=== PATIENT | female | born 1950 | race African-American/Black ===

== ENCOUNTER 2016-04-14 19:08 | Emergency (ER) | payer MEDICARE ==
[~2016-04-14] VITALS: Ht 160 cm; Wt 54.4 kg
[2016-04-14] MEDS ORDERED: Thiamine 100mg tab ORAL ONE (19:30)
[2016-04-14 20:26] LABS: APPEARANCE,URINE CLEAR
[2016-04-14 20:27] LABS: KETONES,URINE NEGATIVE (NEGATIVE); LEUKOCYTE ESTERASE ,URINE NEGATIVE (NEGATIVE); NITRITE,URINE NEGATIVE (NEGATIVE); PROTEIN,URINE NEGATIVE (NEGATIVE); UROBILINOGEN,URINE NORMAL MG/DL (0.0-1.0)
[2016-04-14 20:31] LABS: BACTERIA,URINE FEW /HPF; MUCUS,URINE MODERATE /LPF (NONE/OCC); RBC,URINE 0-2 /HPF (0 - 2); SQUAMOUS EPITHELIAL CELL,UR FEW /LPF (NONE/OCC)
[2016-04-14 20:46] LABS: BASOPHILS % (AUTO) 0.7 % (0.0-2.0); EOSINOPHILS % (AUTO) 0.1 % (0.0-3.0); LYMPHOCYTES % (AUTO) 13.9 % (20.0-45.0); MEAN CORPUSCULAR HEMOGLOBIN 30.5 PG (27.0-31.0); MEAN CORPUSCULAR VOLUME 92 FL (80-99); MEAN PLATELET VOLUME 6.7 FL (6.5-10.1); MONOCYTES % (AUTO) 6.6 % (1.0-10.0); NEUTROPHILS % (AUTO) 78.7 % (45.0-75.0); PLATELET COUNT 244 K/UL (150-450); RED BLOOD COUNT 4.69 M/UL (4.20-5.40); RED CELL DISTRIBUTION WIDTH 12.9 % (11.6-14.8); WHITE BLOOD COUNT 8.9 K/UL (4.8-10.8)
[2016-04-14 21:10] LABS: TROPONIN I < 0.30 ng/mL (<=0.30)
[2016-04-14 21:12] LABS: ALANINE AMINOTRANSFERASE 13 U/L (3-33); ALBUMIN/GLOBULIN RATIO 1.2 (1.0-2.7); ALCOHOL < 10 mg/dL; ANION GAP 18 (5-15); ASPARTATE AMINO TRANSFERASE 41 U/L (5-40); CALCIUM 11.2 mg/dL (8.6-10.2); CARBON DIOXIDE 24 mEQ/L (20-30); CHLORIDE 97 mEQ/L (98-107); CREATININE 0.6 mg/dL (0.5-0.9); GLOMERULAR FILTRATION RATE > 60 mL/min (>60); HEMOLYSIS 139; POTASSIUM 4.5 mEQ/L (3.4-4.9); SODIUM 139 mEQ/L (135-145)
[2016-04-14] MEDS ORDERED: D5 1/2NS w/KCl 20mEq 1,000 ML IV SCH (21:30)
--- NOTE | 2016-04-14 22:10 | Emergency Room Report ---
History of Present Illness General Chief Complaint: General Complaint Source: Patient, Medical Record Present Illness HPI Patient is a 66-year-old female presented after increased confusion. Patient was brought in by ambulance and was noted to have a complaint of "touch and go" the patient was oriented to name. Patient was noted to be somewhat confused in by paramedics. 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 Allergies: Coded Allergies: SULFAMETHOXAZOLE (Verified Allergy, Unknown, 04/14/16) TRIMETHOPRIM (Verified Allergy, Unknown, 04/14/16) Uncoded Allergies: SHELLFISH (Allergy, Unknown, 04/14/16) Patient History Past Medical History: see triage record Past Surgical History: unable to obtain Pertinent Family History: unable to obtain Now: No Reviewed Nursing Documentation: PMH: Agreed, PSxH: Agreed Nursing Documentation-PMH Past Medical History: No History, Except For Hx Hypertension: Yes Hx Neurological Problems: Yes - AD Review of Systems All Other Systems: limited - by poor historian Physical Exam Vital Signs Date Time Temp Pulse Resp B/P Pulse Ox O2 Delivery O2 Flow Rate FiO2 04/14/16 18:59 98.2 76 16 120/70 99 Room Air Sp02 EP Interpretation: normal General Appearance: alert, non-toxic, thin, Chronically Ill Eyes: bilateral eye PERRL ENT: hearing grossly normal, normal pharynx, no angioedema Neck: full range of motion, supple Respiratory: chest non-tender, lungs clear, normal breath sounds, no rhonchi Cardiovascular #1: normal peripheral pulses, regular rate, rhythm, no edema Gastrointestinal: normal bowel sounds, non tender, soft Musculoskeletal: normal inspection, back normal Neurologic: normal inspection, alert, responsive, personnel security specialist III-XII nml as tested Psychiatric: other Skin: normal inspection, normal color, no rash Medical Decision Making Diagnostic Impression: Primary Impression: Dementia Additional Impressions: Dehydration, mild Hypercalcemia ER Course Patient presented for altered mental status.Differential diagnosis included but was not limited to ischemic stroke, subarachnoid hemorrhage, hypoglycemia, spinal cord injury, neurodegenerative disorder, urinary tract infection, hypoxemia.Because of complexity of patient's case laboratory testing and imaging studies were ordered. The EKG interpreted by me showed normal sinus rhythm with a rate of [address] or T changes.The patient was noted be somewhat confused was given oral thiamine. CT the head was ordered read by radiology and showed generalized atrophy and chronic changes without acute CVA patient was noted to have an old lacunar infarct. The patient started on IV fluids.The patient was noted to be wearing medical bracelet. The patient's brother was subsequently contacted and stated that the patient has history of dementia and that she had been missing for most of the day. He was offered placement Mon the patient appears mildly dehydrated and he declined. The patient was endorsed to pending the IV hydration and likely discharge. Labs Test 04/14/16 20:00 04/14/16 20:15 Urine Color Yellow Urine Appearance Clear Urine pH 6.0 (4.5-8.0) Urine Specific Kimberly 1.020 (1.005-1.035) Urine Protein Negative (NEGATIVE) Urine Glucose (UA) Negative (NEGATIVE) Urine Ketones Negative (NEGATIVE) Urine Occult Blood Negative (NEGATIVE) Urine Nitrite Negative (NEGATIVE) Urine Bilirubin Negative (NEGATIVE) Urine Urobilinogen Normal MG/DL (0.0-1.0) Urine Leukocyte Esterase Negative (NEGATIVE) Urine RBC 0-2 /HPF (0 - 2) Urine WBC 2-4 /HPF (0 - 2) Urine Squamous Epithelial Cells Few /LPF (NONE/OCC) Urine Bacteria Few /HPF (NONE) Urine Mucus Moderate /LPF (NONE/OCC) Urine Opiates Screen Negative (NEGATIVE) Urine Barbiturates Screen Negative (NEGATIVE) Phencyclidine (PCP) Screen Negative (NEGATIVE) Urine Amphetamines Screen Negative (NEGATIVE) Urine Benzodiazepines Screen Negative (NEGATIVE) Urine Cocaine Screen Negative (NEGATIVE) Urine Marijuana (THC) Screen Negative (NEGATIVE) White Blood Count 8.9 K/UL (4.8-10.8) Red Blood Count 4.69 M/UL (4.20-5.40) Hemoglobin 14.3 G/DL (12.0-16.0) Hematocrit 43.3 % (37.0-47.0) Mean Corpuscular Volume 92 FL (80-99) Mean Corpuscular Hemoglobin 30.5 PG (27.0-31.0) Mean Corpuscular Hemoglobin Concent 33.0 G/DL (32.0-36.0) Red Cell Distribution Width 12.9 % (11.6-14.8) Platelet Count 244 K/UL (150-450) Mean Platelet Volume 6.7 FL (6.5-10.1) Neutrophils (%) (Auto) 78.7 % (45.0-75.0) Lymphocytes (%) (Auto) 13.9 % (20.0-45.0) Monocytes (%) (Auto) 6.6 % (1.0-10.0) Eosinophils (%) (Auto) 0.1 % (0.0-3.0) Basophils (%) (Auto) 0.7 % (0.0-2.0) Sodium Level 139 mEQ/L (135-145) Potassium Level 4.5 mEQ/L (3.4-4.9) Chloride Level 97 mEQ/L (98-107) Carbon Dioxide Level 24 mEQ/L (20-30) Anion Gap 18 (5-15) Blood Urea Nitrogen 14 mg/dL (7-23) Creatinine 0.6 mg/dL (0.5-0.9) Estimat Glomerular Filtration Rate > 60 mL/min (>60) Glucose Level 109 mg/dL (74-106) Calcium Level 11.2 mg/dL (8.6-10.2) Total Bilirubin 1.0 mg/dL (0.0-1.2) Aspartate Amino Transf (AST/SGOT) 41 U/L (5-40) Alanine Aminotransferase (ALT/SGPT) 13 U/L (3-33) Alkaline Phosphatase 78 U/L (35-104) Troponin I < 0.30 ng/mL (<=0.30) Total Protein 8.0 g/dL (6.6-8.7) Albumin 4.4 g/dL (3.5-5.2) Globulin 3.6 g/dL Albumin/Globulin Ratio 1.2 (1.0-2.7) Serum Alcohol < 10 mg/dL EKG Diagnostic Results Rate: normal Rhythm: NSR ST Segments: no acute changes Last Vital Signs Date Time Temp Pulse Resp B/P Pulse Ox O2 Delivery O2 Flow Rate FiO2 04/14/16 18:59 98.2 76 16 120/70 99 Room Air Status: improved Disposition: HOME, SELF-CARE Condition: Stable Scripts Nitrofurantoin Monohyd/M-Cryst* (MACROBID 100 MG*) 100 Mg Capsule 100 MG ORAL EVERY 12 HOURS, #14 CAP Prov: Eyal Null 04/14/16 Referrals: NOT CHOSEN IPA/,REFERRING (PCP) Eyal Null Apr 14, 2016 22:10
[2016-04-14] MEDS ORDERED: NITROFURANTOIN100 M2 ORAL (22:46)
[2016-04-14 23:14] VITALS: BP 139/73
[2016-04-15] VITALS: BP 139/73
--- NOTE | 2016-04-16 09:10 | Diagnostic Imaging Report ---
Indications: Altered mental status Technique: Spiral acquisitions obtained through the brain. Angled axial and coronal 5 x 5 mm slices were reconstructed. Total dose length product 1393 mGycm. CTDI vol(s) 7 mGy Comparison: None Findings: There is marked age-related enlargement of the ventricles and extra-axial CSF spaces. There is periventricular deep white matter chronic ischemic change. Old infarcts are seen in the left basal ganglia. No acute hemorrhage or edema. No mass effect or midline shift. Impression: Chronic and age-related changes Old lacunar infarcts Negative for acute intracranial bleed or mass effect This agrees with the preliminary interpretation provided overnight by Dr. York The CT scanner at [facility] is accredited by the [employer] and the scans are performed using protocols designed to limit radiation exposure to as low as reasonably achievable to attain images of sufficient resolution adequate for diagnostic evaluation.
--- NOTE | 2016-04-16 20:22 | Cardiology Report ---
APPROVED REPORT EKG Measurement Heart [id number] Sinus rhythm with occasional, and consecutive premature ventricular complexes Left axis deviation Low voltage QRS Abnormal ECG
== END 2016-04-15 | disposition home or self-care (01) ==
LOC: EDBD 19:08 → EMR 19:43 → EDBEDREQ 21:49 → CANBEDREQ 21:49 → EMR 04-15
DX: F03.90 Unspecified dementia, unspecified severity, without behavioral disturbance, psychotic disturbance, mood disturbance, and anxiety (principal); E86.0 Dehydration; E83.52 Hypercalcemia; I10 Essential (primary) hypertension; Z88.0 Allergy status to penicillin; Z88.1 Allergy status to other antibiotic agents; Z91.013 Allergy to seafood
CPT/HCPCS: 36415; 70450; 80053; 80300; 81001; 82962; 84484; 85025; 93005; 96360; 96361; 99284; G0480; 80329